=== PATIENT | female | born 1955 | race Caucasian/White ===

== ENCOUNTER → 2016-11-20 | Outpatient (CLI) | payer MEDICAID ==
[~2016-11-20] MED LIST: BACTRIM DS 8001 TA1 PO; CEPHALEXIN500 MG PO; CIPRO 250MG TA250 MG PO; ETODOLAC200 MG PO; ETODOLAC400 MG PO; FLEXERIL10 MG PO; HYDROCODONE-APA1 TA1 PO; KEFLEX 500MG.500 MG PO; PERCOCET 5/3251 EACH PO; ZOFRAN ODT8 MG PO
--- NOTE | 2016-11-20 13:14 | RADIOLOGY REPORT PS360 ---
[facility] HEPATOBILIARY ([facility]) HISTORY: ABDOMINAL PAIN,GALLBLADDER SLUDGE ORDERING PHYSICIAN: La Nena Hernandez APRN PATIENT AGE: 61 years COMPARISON: Ultrasound of 10/26/2016 DOSE: 8.46 mCi technetium Choletec. 1 mcg of CCK. No pain reported during CCK injection. FINDINGS: Homogeneous activity is present within the hepatic parenchyma. Activity is present in the gallbladder by 10 minutes. Activity is present in the small bowel by 45 minutes. The gallbladder ejection fraction is calculated to be 25% The patient did not report pain or other symptoms during CCK infusion. IMPRESSION: 1. No evidence of common or cystic duct obstruction. 2. Slightly low gallbladder ejection fraction 25%
== END ==
LOC: RAD 08:35
DX: R10.11 Right upper quadrant pain (principal); K82.8 Other specified diseases of gallbladder
CPT/HCPCS: A9537; J2805